=== PATIENT | male | born 2000 | race Native Hawaiian/Other Pacific Islander ===

== ENCOUNTER 2023-03-08 21:46 | Emergency (ER) | payer BC ==
[~2023-03-08] VITALS: Ht 172.7 cm; Wt 63.5 kg
[2023-03-08 22:58] VITALS: BP 113/58
== END 2023-03-08 22:58 | disposition home or self-care (01) ==
LOC: ED 21:46
DX: T78.40XA Allergy, unspecified, initial encounter (principal); R21 Rash and other nonspecific skin eruption
CPT/HCPCS: 96372; 99282; J2930